=== PATIENT | female | born 1960 | race African-American/Black ===

== ENCOUNTER 2024-12-17 17:44 | Emergency (ER) | payer MEDICAID ==
[~2024-12-17] VITALS: Ht 170.2 cm; Wt 89.0 kg
[2024-12-17 17:48] VITALS: O2SAT 100
[2024-12-17] MEDS ORDERED: AMOX1TAB16 MT (18:13)
[2024-12-17] MEDS ORDERED: NAPR-677 MT (18:13)
[2024-12-17 18:24] VITALS: BP 144/78; PULSE 63; RESP 18; TEMP 36.9; O2SAT 100
[2024-12-17] MEDS: AMOXICILLIN/POTASSIUM CLAVULANATE 875/125MG TAB PO ONE (18:29)
[2024-12-17] MEDS: TETANUS, DIPHTHERIA, PERTUSSIS VAC/PF 0.5ML (>10YR OLD) IM ONE (18:29)
== END 2024-12-17 18:34 | disposition home or self-care (01) ==
LOC: ER 17:44
DX: S61.259A Open bite of unspecified finger without damage to nail, initial encounter (principal); I10 Essential (primary) hypertension; F84.0 Autistic disorder; Z79.1 Long term (current) use of non-steroidal anti-inflammatories (NSAID); Z79.899 Other long term (current) drug therapy; W54.0XXA Bitten by dog, initial encounter; Y93.89 Activity, other specified; Y92.89 Other specified places as the place of occurrence of the external cause; Y99.8 Other external cause status
CPT/HCPCS: 73130; 90471; 90715; 99282; 99283; 99284